=== PATIENT | female | born 1975 | race Two or more races ===

== ENCOUNTER 2017-11-23 21:14 | Emergency (ER) | payer SELFPAY | END 2017-11-23 21:38 | LOC: ED 21:32 | DX: O26.852 Spotting complicating pregnancy, second trimester (principal); Z3A.20 20 weeks gestation of pregnancy; Z53.21 Procedure and treatment not carried out due to patient leaving prior to being seen by health care provider ==

== ENCOUNTER 2017-11-23 21:54 | Outpatient (CLI) | payer SELFPAY ==
[~2017-11-23] VITALS: Ht 154.9 cm; Wt 70.0 kg
== END 2017-11-24 01:05 | disposition home or self-care (01) ==
LOC: LDOP 21:54
PROVIDERS: ATTEND Obstetrics & Gynecology
DX: O34.82 Maternal care for other abnormalities of pelvic organs, second trimester (principal); O46.92 Antepartum hemorrhage, unspecified, second trimester; Z3A.20 20 weeks gestation of pregnancy
CPT/HCPCS: 36415; 59025; 76805; 86900; 88300; 99201; G0463